=== PATIENT | female | born 1960 | race Caucasian/White ===

== ENCOUNTER → 2020-06-21 | Outpatient (CLI) | payer OTHER ==
--- NOTE | 2020-06-22 08:53 | CT ---
EXAMINATION TYPE: CT abdomen wo/w con DATE OF EXAM: 06/21/2020 COMPARISON: None available at this location INDICATION: Recommendation from 03/02/2020 CT of chest-RT adrenal mass. DLP: 2266 mGycm, Automated exposure control for dose reduction was used. CONTRAST: 100 mL of Isovue 300. Study performed with Oral Contrast TECHNIQUE: Axial images were obtained from above the diaphragm to the pubic rami in the axial plane a t 5 mm thick sections. Reconstructed images are reviewed on the computer in the coronal plane. FINDINGS: Limited CT sections are obtained the lung bases. The lung bases are clear. CT ABDOMEN: Liver: Normal Spleen: Normal Pancreas: Normal Adrenal glands: The right adrenal gland is enlarged with a transverse dimension of 3.5 cm. Precontras t imaging measures this at 17 Hounsfield units. Postcontrast imaging measures this at 59 Hounsfield u nits. A 4 minute delay measures this at 29 Hounsfield units. The absolute washout of 71% is compatibl e with an adenoma. The relative washout of 51% is also compatible with an adenoma. Gallbladder: Normal Kidneys: No masses are evident. No hydronephrosis is present. No cysts are present. Delayed images were obtained through the kidneys, which remain unremarkable. Aorta: Vascular calcification is within the aorta. Inferior vena cava: Normal. Limited upper CT PELVIS: Loops of bowel within the abdomen and pelvis are normal. There are loops of bowel which are incom pletely distended or lack oral contrast limiting their evaluation. Appendix: Normal as visualized. IMPRESSIONS: 1. Findings compatible with a 4.9 x 3.5 cm right adrenal adenoma.
== END | disposition home or self-care (01) ==
LOC: RADCTMAIN 16:32
PROVIDERS: ATTEND Nurse Practitioner Family
DX: E27.8 Other specified disorders of adrenal gland (principal)
CPT/HCPCS: 74170; Q9967